=== PATIENT | female | born 1950 | race Caucasian/White ===

== ENCOUNTER 2021-01-17 09:53 | Inpatient (IN) | payer MEDICARE, BC ==
[~2021-01-17] VITALS: Ht 167.6 cm; Wt 90.9 kg
[~2021-01-17 09:53] MED LIST: LEVO125T PO; etomidate 2mg/ml inj. ONE; rocuronium 10mg/ml inj IV ONE; sod chloride 0.9% 10ml flush syringe IV ONE
[2021-01-17] MEDS ORDERED: midazolam 1 mg/ML 2ml injection ONE (09:59)
[2021-01-17] MEDS ORDERED: FENTANYL-0.9 % NACL/PF 100 ML IV PRN (10:05)
[2021-01-17] MEDS ORDERED: propofol 1000mg/100ml bottle 100 ML IV SCH ×2 (10:05→10:09)
[2021-01-17] MEDS ORDERED: MIDAZolam 5mg/ml 2ml vial IV ONE (10:10)
[2021-01-17 10:12] LABS: ABG BASE EXCESS 3.4 mmol/L (-2.0-2.0); ABG HCO3 28.2 mmol/L (22.0-26.0); ABG OXYGEN SATURATION 99.3 % (94-97); ABG PCO2 (T) 42.7 mmHg (32.0-45.0); ABG PO2 (T) 221.1 mmHg (75.0-100.0); ALLEN'S TEST POSITIVE; FCOHb 1.5 % (0.0-3.9); FMetHb 0.3 % (0.0-1.5); FO2Hb 97.5 % (94-97); PATIENT TEMPERATURE 36.8; PEEP 5 cm H2O; RESPIRATORY RATE 16 b/min; TIDAL VOLUME 450 mL
--- NOTE | 2021-01-17 10:29 | NUR ---
ART LINE PLACED BY DR. Coughlin ART LINE PATENT.
--- NOTE | 2021-01-17 10:59 | NUR ---
HOSPICE NURSE ASHLEY #[phone]. NURSE CONFIRMED SHE IS OFF HOSPICE CARE
[2021-01-17 11:00] LABS: ALANINE AMINOTRANSFERASE 51 U/L (12-78); ALBUMIN 2.7 G/DL (3.4-5.0); ALBUMIN/GLOBULIN RATIO 0.7 (1.1-1.5); ALKALINE PHOSPHATASE 117 IU/L (46-116); ANION GAP 14 (8-16); BILIRUBIN,TOTAL 3.7 MG/DL (0.1-1.0); BLOOD UREA NITROGEN 55 MG/DL (7-18); BUN/CREATININE RATIO 45.1 (6.6-38.0); CALCIUM 10.4 MG/DL (8.5-10.1); CHLORIDE 100 MMOL/L (99-107); CREATININE 1.22 MG/DL (0.40-0.90); GLUCOSE 165 MG/DL (70-104); SODIUM 142 MMOL/L (135-145); TOTAL CARBON DIOXIDE 28.1 MMOL/L (24-32); TOTAL PROTEIN 6.6 G/DL (6.4-8.2); eGFR 43 ML/MIN
[2021-01-17 11:02] LABS: ASPARTATE AMINO TRANSFERASE 143 U/L (10-37)
[2021-01-17 11:06] LABS: BASOPHILS % (AUTO) 0.2 % (0-1); EOSINOPHILS % (AUTO) 0 % (0-6); HEMOGLOBIN 15.2 g/dl (12.0-16.0); LYMPHOCYTES # (AUTO) 0.6 X10'3 (1.1-4.8); LYMPHOCYTES % (AUTO) 3.1 % (21-51); MEAN CORPUSCULAR HEMOGLOBIN 31.5 PG (27.0-31.0); MEAN CORPUSCULAR HGB CONC 33.8 g/dL (33.0-36.5); MONOCYTES # (AUTO) 1.9 X10'3 (0-0.9); MONOCYTES % (AUTO) 10.1 % (2-12); NEUTROPHILS # (AUTO) 16.3 X10'3 (1.8-7.7); NEUTROPHILS % (AUTO) 86.6 % (42-75); PLATELET COUNT 186 X10'3 (140-440); RED BLOOD COUNT 4.84 X10'6 (4.20-5.60); RED CELL DISTRIBUTION WIDTH 14.9 % (11.5-14.5); WHITE BLOOD COUNT 18.9 X10'3 (4.5-11.0)
[2021-01-17 11:12] VITALS: BP 122/62
[2021-01-17] MEDS ORDERED: normal saline 1000ML IV soln IV ONE (11:20)
[2021-01-17] MEDS ORDERED: vancomycin/NS 1 GM ADD-VANTAGE 250 ML IV ONE (11:20)
[2021-01-17] MEDS ORDERED: CefTRIAXone 2gm/D5W 50ml BAG 50 ML IV ONE (11:20)
[2021-01-17 11:21] LABS: TRIGLYCERIDES 100 MG/DL (20-135)
--- NOTE | 2021-01-17 11:31 | NUR ---
TALKING WITH THE AND STATES, SHE HAS STAGE 4 LUNG CA, AND PLACED ON HOSPICE ON 01-13-21. THORACENTESIS X 2, FIRST 750CC REMOVED, 2 ND TAP 900CC ON 01-11-21. FAMILY HAD TAKEN HER OFF HOSPICE THIS AM AND CALLED 911 FOR INCREASE RESP DISTRESS, CONFUSED, COMBATIVE, REFUSING MEDS. UNABLE TO WALK, DIFF STANDING.
[2021-01-17] MEDS ORDERED: LIDOcaine 2% 10ml TOPICAL JELLY (Urojet) TP ONE (11:40)
[2021-01-17] MEDS ORDERED: acetaminophen 325mg tablet PO PRN ×2 (11:40)
[2021-01-17] MEDS ORDERED: potassium Cl 20 mEq SR tablet PO PRN ×2 (11:40)
[2021-01-17] MEDS ORDERED: ondansetron/PF 4mg/2ml inj IV PRN (11:40)
[2021-01-17] MEDS ORDERED: morphine 2 MG/ML inj. syringe IV PRN (11:40)
[2021-01-17] MEDS ORDERED: morphine 4 MG/ML inj SYRINge IV PRN (11:40)
[2021-01-17] MEDS ORDERED: magnesium hydroxide 30ml (MOM) UD suspension PO PRN (11:40)
--- NOTE | 2021-01-17 11:42 | NUR ---
spoke with Dr. Marr and will come talk with after being told of hx: lung ca stage 4. was removed from hospital this am per families wishes.
[2021-01-17] MEDS ORDERED: IPRA3AMP31 NEB (11:43)
--- NOTE | 2021-01-17 11:59 | NUR ---
DR. BOLAND AT BEDSIDE TALKING WITH FAMILY
== END 2021-01-17 18:58 | DRG 208 ==
LOC: ER 09:53 → ED HOLD 11:40 → UNDOADMIN 11:40 → ED HOLD 11:43 → ICU 2S 13:36 → UNDODISIN 18:58
PROVIDERS: ADMIT Surgery; ATTEND Surgery
PROC: 5A1935Z Respiratory Ventilation, Less than 24 Consecutive Hours (ICD-10-PCS; principal; 2021-01-17)
PROC: 0BH17EZ Insertion of Endotracheal Airway into Trachea, Via Natural or Artificial Opening (ICD-10-PCS; 2021-01-17)
PROC: 06HY33Z Insertion of Infusion Device into Lower Vein, Percutaneous Approach (ICD-10-PCS; 2021-01-17)
PROC: 0D9670Z Drainage of Stomach with Drainage Device, Via Natural or Artificial Opening (ICD-10-PCS; 2021-01-17)
PROC: 04HY32Z Insertion of Monitoring Device into Lower Artery, Percutaneous Approach (ICD-10-PCS; 2021-01-17)
PROC: 4A133B1 Monitoring of Arterial Pressure, Peripheral, Percutaneous Approach (ICD-10-PCS; 2021-01-17)
PROC: 4A133J1 Monitoring of Arterial Pulse, Peripheral, Percutaneous Approach (ICD-10-PCS; 2021-01-17)
DX: J96.01 Acute respiratory failure with hypoxia (principal); C34.90 Malignant neoplasm of unspecified part of unspecified bronchus or lung; E87.2 Acidosis; J90 Pleural effusion, not elsewhere classified; R18.8 Other ascites; J44.9 Chronic obstructive pulmonary disease, unspecified; E11.9 Type 2 diabetes mellitus without complications; F17.210 Nicotine dependence, cigarettes, uncomplicated; Z20.822 Contact with and (suspected) exposure to COVID-19; F32.9 Major depressive disorder, single episode, unspecified; E03.9 Hypothyroidism, unspecified; F41.9 Anxiety disorder, unspecified; K72.90 Hepatic failure, unspecified without coma; Z51.5 Encounter for palliative care; Z90.710 Acquired absence of both cervix and uterus; Z90.49 Acquired absence of other specified parts of digestive tract; Z88.0 Allergy status to penicillin; Z88.2 Allergy status to sulfonamides; Z88.8 Allergy status to other drugs, medicaments and biological substances; Z82.5 Family history of asthma and other chronic lower respiratory diseases; Z79.899 Other long term (current) drug therapy
CPT/HCPCS: 31500; 36415; 36556; 36600; 71045; 80053; 82803; 83605; 83880; 84145; 84478; 84484; 85018; 85025; 87040; 87070; 87077; 87186; 87635; 93005; 94002; 94760; 94799; 96365; 96375; 99291; C9803; G0378; J2250; J2704; J3010